=== PATIENT | female | born 1970 | race Caucasian/White ===

== ENCOUNTER 2016-09-20 15:13 | Emergency (ER) | payer OTHER ==
--- NOTE | 2016-09-20 17:23 | ED NURSING NOTES ---
Clinical Report - Nurses [facility] [address] [place] [address] 09/20/2016 15:17 Patient: IAM BOSE TRIAGE Triage time 15:47. Acuity: LEVEL 3. Chief Complaint: PAINFUL URINATION, URGENCY and FREQUENCY. Alert. No acute distress. CHON COMA SCORE: [place] Coma Scale: 15- eyes open spontaneously (4); best verbal response- oriented x 4 (5); best motor response- obeys commands (6). --15:57 Bev Singh R.N. 15:47 09/20/16. BP: 148/102. HR: 122. RR: 18. O2 saturation: 98% on room air. Temp: 98.4 F (oral). Pain level now: 10/12. --15:57 Bev Singh R.N. Weight: 86.1 kg stated. Height/Length: 71 inches Per Patient. BMI: 26.5. --15:54 Bev Singh R.N. Medications Albuterol Sulfate HFA Inhalation, as needed. --15:50 Bev Singh R.N. Medication/allergy information source: the patient. --15:57 Bev Singh R.N. Allergies Sulfa Antibiotics. --17:30 Johnson Gaitan R.N. The following entry was struck by Johnson Gaitan R.N., 17:29 (09/20/16) Reason - other. <<STRICKEN ENTRY-- No Known Drug Allergy. --15:50 Bev Singh R.N. --END STRIKE>>. History Arrived by private vehicle. Historian: patient. Unaccompanied. Primary physician (Teagan). Onset. (about 2 weeks). Describes the quality as "pain". Relates the location as in the left flank area. PAST MEDICAL HX: Last normal menstrual period- September 2016. SOCIAL HX: Heavy tobacco smoker- less than 1 pack per day. Regular alcohol use. No drug use. FALL RISK ASSESSMENT: Fall risk assessment completed. No fall risk identified. FUNCTIONAL ASSESSMENT: Functional assessment: no impairments noted. LEARNING NEEDS ASSESSMENT: The learning needs assessment revealed no barriers. --15:57 Bev Singh R.N. PROBLEMS: URI. Contusion. Head Injury. Concussion. Dental Abscess. Dental Caries. Hypertension. Dental Pain. Allergic Reaction. LNMP - Last Normal Menstrual Period. Immunizations. Asthma. --15:51 Bev Singh R.N. ADDITIONAL SURGERIES: Tubal Ligation. --15:51 Bev Singh R.N. Assessment GENERAL / NEURO / PSYCH: Alert. Oriented X 4. Appears in no acute distress. Patient appears calm and cooperative. RESPIRATORY: Respirations not labored. SKIN: Skin is warm and dry. --15:57 Bev Singh R.N. Interventions To treatment room. --15:57 Bev Singh R.N. PHYSICAL ASSESSMENT 15:59 09/20/16. Ambulatory to room. GENERAL / NEURO / PSYCH: Oriented X 4. Appears in pain. RESPIRATORY: Respirations not labored. CVS: Capillary refill less than 2 seconds. SKIN: Skin is warm and dry. --15:59 Johnson Gaitan R.N. NURSING PROGRESS NOTES 15:58 09/20/16. :patient confirmed. Clean catch urine collected; sample sent to lab. Specimen labeled in the presence of the patient. --15:58 Bev Singh R.N. 15:59 09/20/2016 Site #1 started via IV in the right antecubital space with an 20g angiocath, with aseptic technique and good blood return; one attempt. Blood drawn: rainbow set. Labeled in the presence of the patient and sent to the lab. Saline lock flushed with 10 mL saline. --16:09 Johnson Gaitan R.N. 16:09 09/20/2016 Started bag #1 1000 mL IV Fluids IV NS (Saline); at 1000 mL/hr over 1 hour(s) via site #1. Allergies verified and confirmed 5 rights. IV patency established. IV site checked: no pain, redness, or swelling. IV flushed thoroughly pre- and post-medication administration. Completed per protocol. --16:09 Johnson Gaitan R.N. 17:16 09/20/2016 IV Fluids IV NS Discontinued: bag #1 infused. Total amount infused: 1000 mL. IV patency established. IV site checked: no pain, redness, or swelling. IV flushed thoroughly. --17:26 Johnson Gaitan R.N. 17:26 09/20/2016 Toradol IVP 30 mg given over 2 minute(s) via site #1. Allergies verified and confirmed 5 rights. IV patency established. IV site checked: no pain, redness, or swelling. IV flushed thoroughly pre- and post-medication administration. IVP given by RN. --17:26 Johnson Gaitan R.N. 17:27 09/20/2016 Started 1 gm of Ceftriaxone IVPB in bag #1 50 mL; at 120 mL/hr over 20 minute(s) via site #1; Allergies verified and confirmed 5 rights. IV patency established. IV site checked: no pain, redness, or swelling. IV flushed thoroughly pre- and post-medication administration. Completed per protocol. --17:27 Johnson Gaitan R.N. 17:40 09/20/16. The patient is resting quietly. Overall patient status is improved- she states feels better. SKIN: Skin is warm and dry. --17:40 Bev Singh R.N. 17:38 09/20/16. BP: 138/80. HR: 87. RR: 18. O2 saturation: 97% on room air. --17:40 Bev Singh R.N. 17:50. Reassessment after fluids administered and medication administered. She is calm and resting quietly. Overall patient status is improved- she states feels better. SKIN: Skin is warm and dry. --18:17 Bev Singh R.N. DISPOSITION / DISCHARGE 17:50 09/20/2016 Site #1 removed upon discharge. Catheter intact. Bandaid applied. --18:16 Bev Singh R.N. 17:50 09/20/2016 Ceftriaxone IVPB Discontinued: bag #1 infused upon discharge. Total amount infused: 50 mL. --18:16 Bev Singh R.N. Departure time: 1750. Condition at departure: stable. No learning barriers present. Discharge instructions provided and reviewed with the patient. Reviewed medication(s). Prescription(s) given to the patient. Patient verbalized understanding. Written instructions provided in Filipino. The patient was discharged home and unaccompanied at time of discharge. She left the Emergency Department ambulatory and via private vehicle. FALL RISK ASSESSMENT: Fall risk assessment completed. No fall risk identified. --18:16 Bev Singh R.N. 18:14 09/20/16. BP: 139/82. HR: 87. RR: 18. O2 saturation: 98% on room air. Temp: 97.9 F (oral). --18:16 Bev Singh R.N. Locked/Released at 09/20/2016 18:18 by Bev Singh R.N.
--- NOTE | 2016-09-20 17:23 | ED CLINICAL REPORT ---
Clinical Report - Physicians/Mid Levels [facility] [address] [place] [address] 09/20/2016 15:17 Patient: IAM BOSE Time Seen: 17:05; initial patient contact, initial documentation, patient care assumed. Arrived- By private vehicle. Historian- patient. HISTORY OF PRESENT ILLNESS Chief Complaint: DYSURIA. This started about 2 weeks ago and still present. It was gradual in onset and has been constant. The symptoms are described as mild. Modifying factors- worsened by urination. Not relieved by anything. The patient has had abdominal pain. She has had moderate left-sided flank pain. No pelvic pain, vaginal pain, low back pain, abnormal bleeding or vaginal discharge. No hematuria. She has had pain with urination and urgency of urination. The patient has had urinary frequency. Denies current . Similar symptoms previously: None. Recent medical care: Not recently seen/assessed. REVIEW OF SYSTEMS No nausea, vomiting, diarrhea, fever or difficulty breathing. No chest pain. All systems otherwise negative, except as recorded above. PAST HISTORY See nurses notes. ( PROBLEMS: URI. Contusion. Head Injury. Concussion. Dental Abscess. Dental Caries. Hypertension. Dental Pain. Allergic Reaction. LNMP - Last Normal Menstrual Period. Immunizations. Asthma. --15:51 Bev Singh, R.N. ADDITIONAL SURGERIES: Tubal Ligation. --15:51 Bev Singh, R.N.). SOCIAL HISTORY Light tobacco smoker. Regular alcohol use. No drug use. No recent travel. Is a local resident. FAMILY HISTORY Negative. ADDITIONAL NOTES The nursing notes have been reviewed with agreement regarding the chief complaint, HPI, ROS, PMH and patient medications and allergies. PHYSICAL EXAM Vital Signs: 09/20/2016 15:47 BP: 148/102. HR: 122. RR: 18. O2 saturation: 98%. Temp: 98.4 F. Pain level now: 8/10. Have been reviewed as abnormal and appear to be correct. Hypertensive. Tachycardic. Respiratory rate normal. Temperature normal. Oxygen saturation normal. Appearance: Alert. Oriented X3. No acute distress. HEENT: Normal external inspection. ENT: Pharynx normal. Neck: Neck supple. CVS: Heart sounds normal. Respiratory: No respiratory distress. Breath sounds normal. Chest nontender. Abdomen: Soft and nontender. Bowel sounds normal. No organomegaly. No mass. Back: Abnormal external inspection. Mild CVA tenderness on the left. Skin: Skin warm and dry. Normal skin color. No rash. Normal skin turgor. Extremities: Extremities nontender. No lower extremity edema. Neuro: Oriented X 3. Mood/affect normal. No motor deficit. No sensory deficit. LABS, X-RAYS, AND EKG Laboratory Tests: UA-Culture if indicated: (BRIANNE: 09/20/2016 15:55) ( [facility] [place] 09/20/2016 16:32) Final results Test Result Flag Units (Reference) URINE COLOR YELLOW URINE APPEARANCE SL CLOUDY URINE GLUCOSE NEGATIVE (NEGATIVE) URINE BILIRUBIN NEGATIVE (NEGATIVE) URINE KETONE NEGATIVE (NEGATIVE) URINE SPECIFIC GRAVITY 1.010 (1.010-1.030) URINE PH 6.5 (5.0-8.0) URINE PROTEIN NEGATIVE (NEGATIVE) URINE UROBILINOGEN 0.2 EU/dL (0.2-1.0) URINE NITRITE NEGATIVE (NEGATIVE) URINE BLOOD 1+ (NEGATIVE) URINE LEUK ESTERASE POSITIVE (NEGATIVE) URINE RBC 5-10 rbc/hpf (0-1) URINE WBC 15-25 wbc/hpf (0-1) URINE EPITHELIAL CELLS 1-3 EPI/hpf (0-5) URINE BACTERIA FEW (1+) (NONE SEEN) URINE COMMENT CULTURE INDICATED URINE CULTURES ARE SET-UP BASED ON THE FOLLOWING CRITERIA:POSITIVE NITRITEPOSITIVE LEUKOCYTE ESTERASEGREATER THAN 10 WHITE BLOOD CELLSMODERATE (2+) OR GREATER BACTERIA Urine: (BRIANNE: 09/20/2016 15:55) ( [facility] [place] [place] 09/20/2016 16:23) Final results Test Result Flag Units (Reference) URINE NEGATIVE CBC w Diff: (BRIANNE: 09/20/2016 16:00) ( [facility] [place] [place] 09/20/2016 16:34) Final results Test Result Flag Units (Reference) WHITE BLOOD COUNT 16.0 H K/uL (4.5-11.5) RED BLOOD COUNT 4.66 M/uL (4.00-5.20) HEMOGLOBIN 14.5 gm/dL (12.0-16.0) HEMATOCRIT 44.1 % (36.0-46.0) MEAN CELL VOLUME 95 fL (80-100) MEAN CORPUSCULAR HGB 31 pg (26-34) MEAN CORPUSCULAR HGB CONC 33 g/dL (31-37) RED CELL DISTRIBUTION WIDTH 14.5 % (11.6-14.8) PLATELET COUNT 366 K/uL (150-400) NEUTROPHIL % 72.4 % (50-75) LYMPH % 19.7 L % (25-40) MONO % 5.4 % (3-14) EOSINOPHIL % 2.0 % (0-4) BASOPHIL % 0.5 % (0-2) CMP: (BRIANNE: 09/20/2016 16:00) ( MsgRcvd 09/20/2016 16:50) Final results Test Result Flag Units (Reference) GLUCOSE 110 mg/dL (70-110) BUN 10 mg/dL (7-18) CREATININE 0.9 mg/dL (0.6-1.3) Estimated GFR >60 mL/min Estimated GFR- >60 mL/min Note: Persistent reduction over 3 months in eGFR<60 mL/min/1.73 m2 defines CKD. Patients with eGFR values>=60 mL/min/1.73 m2 may also have CKD if evidence ofpersistent proteinuria. Additional information may be foundat www.kidney.org. SODIUM 140 mmol/L (136-145) POTASSIUM 4.1 mmol/L (3.5-5.1) CHLORIDE 103 mmol/L (98-107) CARBON DIOXIDE 28 mmol/L (21-32) CALCIUM 9.8 mg/dL (8.5-10.1) TOTAL PROTEIN 7.6 g/dL (6.4-8.2) ALBUMIN 3.9 g/dL (3.3-5.0) BILIRUBIN, TOTAL 0.4 mg/dL (0.0-1.0) ALKALINE PHOSPHATASE 92 U/L (46-116) AST (SGOT) 26 U/L (15-37) ALT (SGPT) 56 U/L (12-78) . PROGRESS AND PROCEDURES Patient counseled in person regarding the patient's stable condition, test results and diagnosis. Differential Diagnosis: Other possible considerations: uti, pyelo, kidney stone, failure, insufficiency, urosepsis. Above considerations are based on history, physical exam and laboratory data. Differential diagnosis was discussed with patient. Disposition: Discharged home in good and improved condition (17:23). Condition: good and stable. CLINICAL IMPRESSION Acute pyelonephritis INSTRUCTIONS Alternate Tylenol (Acetaminophen) and Motrin (Ibuprofen) for fever, temperature greater than 101 degrees. Take according to label instructions. Drink plenty of fluids for the next 24 hours until better. Warnings: GENERAL WARNINGS: Return or contact your physician immediately if your condition worsens or changes unexpectedly, if not improving as expected, or if other problems arise. Specifically return if problem worsens. Prescription Medications: Zofran 4 mg: Take 1 orally every six hours as needed for nausea/vomiting. Dispense ten (10). No refills. Substitution is permissible. Ultram 50 mg tablets: take 1-2 orally every 6 hours as needed for pain. Dispense twenty (20). No refills. Substitution is permissible. Levaquin 500 mg: take 1 tablet orally every 24 hours for 10 days. No refills. Substitution is permissible. Follow-up: Follow up with your doctor in about two days even if well. Summary of care provided to patient. Screening today revealed the patient's blood pressure to be in the hypertensive range. The patient should follow up with a primary care provider for blood pressure management. Understanding of the discharge instructions verbalized by patient. (Electronically signed by Rupali Pastrana A.R.N.P. 09/20/2016 21:14)
--- NOTE | 2016-09-20 17:23 | ED ORDER SUMMARY ---
..... Patient: IAM BOSE OrderSheet [facility] VisitID: [id number] [place] [address] 46y, F Registration Date/Time: 09/20/2016 ORDER SHEET Weight: 86.1 kg (stated) Allergies: Sulfa Antibiotics GENERAL ORDERS: UA-Culture if indicated Urgent (15:58 09/20/2016 JBoardley R.N. per protocol) (Ack 16:00 AMcQuoid ER Tech1) (16:09 JBoardley R.N.) Urine Urgent (15:58 09/20/2016 JBoardley R.N. per protocol) (Ack 16:00 AMcQuoid ER Tech1) (16:09 JBoardley R.N.) CBC w Diff Urgent (16:08 09/20/2016 JBoardley R.N. per protocol) (Ack 16:10 AMcQuoid ER Tech1) (16:14 JBoardley R.N.) CMP Urgent (16:08 09/20/2016 JBoardley R.N. per protocol) (Ack 16:10 AMcQuoid ER Tech1) (16:14 JBoardley R.N.) MEDICATION ORDERS: IV FLUIDS: IV NS : initial bolus none -, then 1000 mL/hr for X1 (NOW) (16:08 09/20/2016 JBoardley R.N. per protocol) (16:09 JBoardley R.N.) Toradol IV 30 mg (NOW) (17:21 09/20/2016 HBivens A.R.N.P.) (Ack 17:22 JBoardley R.N.) (17:26 JBoardley R.N.) Ceftriaxone IV 1 gm/50mL (NOW) (17:21 09/20/2016 HBivens A.R.N.P.) (Ack 17:22 JBoardley R.N.) (17:27 JBoardley R.N.) ORDER SHEET NOTES: [Electronically signed by Bev Singh R.N. (18:18 09/20/2016)] [Electronically signed by Rupali Pastrana A.R.N.P. (21:14 09/20/2016)] [Electronically locked/signed by Bev Singh R.N. (18:18 09/20/2016)]
--- NOTE | 2016-09-20 17:23 | ED ORDER SUMMARY ---
..... Patient: IAM BOSE OrderSheet [facility] VisitID: [id number] [place] [address] 46y, F Registration Date/Time: 09/20/2016 ORDER SHEET Weight: 86.1 kg (stated) Allergies: Sulfa Antibiotics GENERAL ORDERS: UA-Culture if indicated Urgent (15:58 09/20/2016 JBoardley R.N. per protocol) (Ack 16:00 AMcQuoid ER Tech1) (16:09 JBoardley R.N.) Urine Urgent (15:58 09/20/2016 JBoardley R.N. per protocol) (Ack 16:00 AMcQuoid ER Tech1) (16:09 JBoardley R.N.) CBC w Diff Urgent (16:08 09/20/2016 JBoardley R.N. per protocol) (Ack 16:10 AMcQuoid ER Tech1) (16:14 JBoardley R.N.) CMP Urgent (16:08 09/20/2016 JBoardley R.N. per protocol) (Ack 16:10 AMcQuoid ER Tech1) (16:14 JBoardley R.N.) MEDICATION ORDERS: IV FLUIDS: IV NS : initial bolus none -, then 1000 mL/hr for X1 (NOW) (16:08 09/20/2016 JBoardley R.N. per protocol) (16:09 JBoardley R.N.) Toradol IV 30 mg (NOW) (17:21 09/20/2016 HBivens A.R.N.P.) (Ack 17:22 JBoardley R.N.) (17:26 JBoardley R.N.) Ceftriaxone IV 1 gm/50mL (NOW) (17:21 09/20/2016 HBivens A.R.N.P.) (Ack 17:22 JBoardley R.N.) (17:27 JBoardley R.N.) ORDER SHEET NOTES: [Electronically signed by Bev Singh R.N. (18:18 09/20/2016)] [Electronically signed by Rupali Pastrana A.R.N.P. (21:14 09/20/2016)] [Electronically locked/signed by Bev Singh R.N. (18:18 09/20/2016)]
--- NOTE | 2016-09-20 21:14 | ED MED RECONCILIATION SUMMARY ---
Patient: IAM BOSE Medication Reconciliation Report [facility] VisitID: [id number] [address] [place] [address] 46y, F Registration Date/Time: 09/20/2016 Weight: 86.1 kg Height/Length: 71 in. BMI: 26.5 ALLERGIES: Sulfa Antibiotics The patient's Home Medications are listed below: THE FOLLOWING MEDICATIONS NEED TO BE RECONCILED: Albuterol Sulfate HFA Inhalation The source(s) of the original Home Medication information: patient The following Medications were given to the patient in the Emergency Department: IV NS IV Fluids bolus 0, then 1000 mL/hr, administered: 09/20/2016 4:09:00 PM Toradol [IVP] IVP 30 mg, administered: 09/20/2016 5:26:00 PM Ceftriaxone [IVPB] IVPB bolus 0, then 1 gm 120 mL/hr, administered: 09/20/2016 5:27:00 PM The following Medications were prescribed to the patient: Zofran 4 mg: Take 1 orally every six hours as needed for nausea/vomiting. Dispense ten (10). No refills. Substitution is permissible. -- Rupali Pastrana, A.R.N.P. Ultram 50 mg tablets: take 1-2 orally every 6 hours as needed for pain. Dispense twenty (20). No refills. Substitution is permissible. -- Rupali Pastrana, A.R.N.P. Levaquin 500 mg: take 1 tablet orally every 24 hours for 10 days. No refills. Substitution is permissible. -- Rupali Pastrana A.R.N.P.
--- NOTE | 2016-09-20 21:14 | ED MAR SUMMARY ---
..... Medication Administration Record [facility] [address] [place] [address] Patient: IAM BOSE Visit ID: [id number] 46y, F Weight: 86.1 kg Height/Length: 71 in BMI: 26.5 ALLERGIES: Sulfa Antibiotics Start 16:09 09/20/2016 Johnson Gaitan R.N., Stop 17:16 09/20/2016 Johnson Gaitan R.N. Medication Administered: IV NS (SALINE), Dose: IV Fluids over 1 hour(s), Rate: 1000 mL/hr, Dispensed: 1000 mL bag, Site: #1 right AC. Medication Ordered: IV NS : initial bolus none -, then 1000 mL/hr for X1 (NOW). Given 17:26 09/20/2016 Johnson Gaitan R.N. Medication Administered: TORADOL [IVP], Dose: 30 mg IVP over 2 minute(s), Site: #1 right AC. Medication Ordered: Toradol IV 30 mg (NOW). Start 17:27 09/20/2016 Johnson Gaitan R.N., Stop 17:50 09/20/2016 Bev Singh R.N. Medication Administered: CEFTRIAXONE [IVPB], Dose: 1 gm IVPB over 20 minute(s), Rate: 120 mL/hr, Dispensed: 50 mL bag, Site: #1 right AC. Medication Ordered: Ceftriaxone IV 1 gm/50mL (NOW).
--- NOTE | 2016-09-20 21:14 | ED MED RECONCILIATION SUMMARY ---
Patient: IAM BOSE Medication Reconciliation Report [facility] VisitID: [id number] [address] [place] [address] 46y, F Registration Date/Time: 09/20/2016 Weight: 86.1 kg Height/Length: 71 in. BMI: 26.5 ALLERGIES: Sulfa Antibiotics The patient's Home Medications are listed below: THE FOLLOWING MEDICATIONS NEED TO BE RECONCILED: Albuterol Sulfate HFA Inhalation The source(s) of the original Home Medication information: patient The following Medications were given to the patient in the Emergency Department: IV NS IV Fluids bolus 0, then 1000 mL/hr, administered: 09/20/2016 4:09:00 PM Toradol [IVP] IVP 30 mg, administered: 09/20/2016 5:26:00 PM Ceftriaxone [IVPB] IVPB bolus 0, then 1 gm 120 mL/hr, administered: 09/20/2016 5:27:00 PM The following Medications were prescribed to the patient: Zofran 4 mg: Take 1 orally every six hours as needed for nausea/vomiting. Dispense ten (10). No refills. Substitution is permissible. -- Rupali Pastrana, A.R.N.P. Ultram 50 mg tablets: take 1-2 orally every 6 hours as needed for pain. Dispense twenty (20). No refills. Substitution is permissible. -- Rupali Pastrana, A.R.N.P. Levaquin 500 mg: take 1 tablet orally every 24 hours for 10 days. No refills. Substitution is permissible. -- Rupali Pastrana A.R.N.P.
--- NOTE | 2016-09-20 21:14 | ED MAR SUMMARY ---
..... Medication Administration Record [facility] [address] [place] [address] Patient: IAM BOSE Visit ID: [id number] 46y, F Weight: 86.1 kg Height/Length: 71 in BMI: 26.5 ALLERGIES: Sulfa Antibiotics Start 16:09 09/20/2016 Johnson Gaitan R.N., Stop 17:16 09/20/2016 Johnson Gaitan R.N. Medication Administered: IV NS (SALINE), Dose: IV Fluids over 1 hour(s), Rate: 1000 mL/hr, Dispensed: 1000 mL bag, Site: #1 right AC. Medication Ordered: IV NS : initial bolus none -, then 1000 mL/hr for X1 (NOW). Given 17:26 09/20/2016 Johnson Gaitan R.N. Medication Administered: TORADOL [IVP], Dose: 30 mg IVP over 2 minute(s), Site: #1 right AC. Medication Ordered: Toradol IV 30 mg (NOW). Start 17:27 09/20/2016 Johnson Gaitan R.N., Stop 17:50 09/20/2016 Bev Singh R.N. Medication Administered: CEFTRIAXONE [IVPB], Dose: 1 gm IVPB over 20 minute(s), Rate: 120 mL/hr, Dispensed: 50 mL bag, Site: #1 right AC. Medication Ordered: Ceftriaxone IV 1 gm/50mL (NOW).
--- NOTE | 2016-09-20 21:14 | ED DISCHARGE INSTRUCTIONS ---
Patient: IAM BOSE General Instructions [facility] VisitID: [id number] [place] [address] 46y, F Registration Date/Time: 09/20/2016 Acute pyelonephritis INSTRUCTIONS Alternate Tylenol (Acetaminophen) and Motrin (Ibuprofen) for fever, temperature greater than 101 degrees. Take according to label instructions. Drink plenty of fluids for the next 24 hours until better. Warnings: GENERAL WARNINGS: Return or contact your physician immediately if your condition worsens or changes unexpectedly, if not improving as expected, or if other problems arise. Specifically return if problem worsens. Prescription Medications: Zofran 4 mg: Take 1 orally every six hours as needed for nausea/vomiting. Dispense ten (10). No refills. Substitution is permissible. Ultram 50 mg tablets: take 1-2 orally every 6 hours as needed for pain. Dispense twenty (20). No refills. Substitution is permissible. Levaquin 500 mg: take 1 tablet orally every 24 hours for 10 days. No refills. Substitution is permissible. Follow-up: Follow up with your doctor in about two days even if well. Summary of care provided to patient. Screening today revealed the patient's blood pressure to be in the hypertensive range. The patient should follow up with a primary care provider for blood pressure management. Understanding of the discharge instructions verbalized by patient. ADDITIONAL INFORMATION Kidney Infection [Adult, Female] An infection of the kidney is also called "pyelonephritis". It usually starts as a bladder infection ("cystitis") which spreads to the kidneys. Pyelonephritis is more serious than a bladder infection. It can cause severe illness if not treated properly. The usual symptoms include an aching pain in the back, side or lower abdomen. Other symptoms may include fever, chills, nausea, vomiting, an urge to urinate and a burning sensation when passing urine. Home Care: Stay home from work or school. Rest in bed until your fever breaks and you are feeling better. Drink lots of fluid (at least 6-8 glasses a day, unless you must restrict fluids for other medical reasons). This will force the medicine into your urinary system and flush the bacteria out of your body. Avoid sexual intercourse until you have finished all of your medicine and your symptoms have gone away. Avoid caffeine, alcohol and spicy foods which may irritate the kidney and bladder. You may use acetaminophen (Tylenol) or ibuprofen (Motrin, Advil) to control pain, unless another pain medicine was prescribed. [NOTE: If you have chronic liver or kidney disease or ever had a stomach ulcer or GI bleeding, talk with your doctor before using these medicines.] Follow Up with your doctor or as advised by our staff for a repeat urine test in 10 days. This will ensure that your infection is fully cleared. [NOTE: If you had an X-ray or CT scan, it will be reviewed by a specialist. You will be notified of any new findings that may affect your care.] Get Prompt Medical Attention if any of the following occur: Fever over 100.4F (38.0C) after 48 hours of treatment No improvement by the third day of treatment Increasing back or abdominal pain Repeated vomiting or inability to take oral medicine Weakness, dizziness or fainting Fever Control (Adult) A fever is a natural reaction of the body to an illness. In most cases, the temperature itself is not harmful. It actually helps the body fight infections. A fever does not need to be treated unless you feel very uncomfortable. Home Care If you feel warm, check your temperature. If you feel very uncomfortable and your temperature is at or higher than 100.4F (38C) oral, you may take acetaminophen (Tylenol) every 4 to 6 hours. If you cant take or keep down oral medicine, ask your pharmacist for Tylenol suppositories, which you can get without a prescription. If the fever does not respond to acetaminophen within 1 hour, take ibuprofen (Advil or Motrin). If this works, keep taking the ibuprofen every 6 to 8 hours. Note: If you have chronic liver or kidney disease or ever had a stomach ulcer or GI bleeding, talk with your doctor before using these medications. If either medication alone does not keep the fever down, you may alternate the two medicines every 3 to 4 hours, only if your healthcare provider has instructed you to do so. For example, take Motrin then wait 3 hours, take Tylenol then wait 3 hours, take Motrin, and so on. Follow your healthcare providers instructions exactly. Clothing: Keep clothing light because excess body heat is lost through the skin. The fever will go up if you wear extra layers or wrap in blankets. Fluids: Fever causes the body to lose water through evaporation. Drink plenty of fluids such as water, juice, clear sodas, ryder lin, or lemonade. Do not use aspirin in anyone under 18 years of age who is ill with a fever. It can cause severe liver damage. Follow Up with your doctor or as advised by our staff if you do not get better after 48 hours. Get Prompt Medical Attention if any of the following occur: Fever does not get better after taking fever medication Fast or difficult breathing Earache, sinus pain, stiff or painful neck, headache, repeated diarrhea or vomiting You feel unusually irritable, drowsy, or confused A rash appears You feel weak or dizzy, or that you might faint Ondansetron Oral disintegrating tablet What is this medicine? ONDANSETRON (on KEAGAN se mj) is used to treat nausea and vomiting caused by chemotherapy. It is also used to prevent or treat nausea and vomiting after surgery. How should I use this medicine? These tablets are made to dissolve in the mouth. Do not try to push the tablet through the foil backing. With dry hands, peel away the foil backing and gently remove the tablet. Place the tablet in the mouth and allow it to dissolve, then swallow. While you may take these tablets with water, it is not necessary to do so. Talk to your needle valve operator regarding the use of this medicine in children. Special care may be needed. What side effects may I notice from receiving this medicine? Side effects that you should report to your doctor or health chronic care nurse as soon as possible: allergic reactions like skin rash, itching or hives, swelling of the face, lips, or tongue breathing problems dizziness fast or irregular heartbeat feeling faint or lightheaded, falls fever and chills swelling of the hands and feet tightness in the chest Side effects that usually do not require medical attention (report to your doctor or health chronic care nurse if they continue or are bothersome): constipation or diarrhea headache What may interact with this medicine? Do not take this medicine with any of the following medications: -apomorphine -cisapride -dofetilide -dronedarone -pimozide -thioridazine -ziprasidone This medicine may also interact with the following medications: -carbamazepine -phenytoin -rifampicin -tramadol -other medicines that prolong the QT interval (cause an abnormal heart rhythm) What if I miss a dose? If you miss a dose, take it as soon as you can. If it is almost time for your next dose, take only that dose. Do not take double or extra doses. Where should I keep my medicine? Keep out of the reach of children. Store between 2 and 30 degrees C (36 and 86 degrees F). Throw away any unused medicine after the expiration date. What should I tell my health care provider before I take this medicine? They need to know if you have any of these conditions: heart disease history of irregular heartbeat liver disease low levels of magnesium or potassium in the blood an unusual or allergic reaction to ondansetron, granisetron, other medicines, foods, dyes, or preservatives or trying to get breast-feeding What should I watch for while using this medicine? Check with your doctor or health chronic care nurse as soon as you can if you have any sign of an allergic reaction. Tramadol Hydrochloride Oral tablet What is this medicine? TRAMADOL (TRA ma dole) is a pain reliever. It is used to treat moderate to severe pain in adults. How should I use this medicine? Take this medicine by mouth with a full glass of water. Follow the directions on the prescription label. If the medicine upsets your stomach, take it with food or milk. Do not take more medicine than you are told to take. Talk to your needle valve operator regarding the use of this medicine in children. Special care may be needed. What side effects may I notice from receiving this medicine? Side effects that you should report to your doctor or health chronic care nurse as soon as possible: allergic reactions like skin rash, itching or hives, swelling of the face, lips, or tongue breathing difficulties, wheezing confusion itching light headedness or fainting spells redness, blistering, peeling or loosening of the skin, including inside the mouth seizures Side effects that usually do not require medical attention (report to your doctor or health chronic care nurse if they continue or are bothersome): constipation dizziness drowsiness headache nausea, vomiting What may interact with this medicine? Do not take this medicine with any of the following medications: MAOIs like Carbex, Eldepryl, Marplan, Nardil, and Parnate This medicine may also interact with the following medications: alcohol or medicines that contain alcohol antihistamines benzodiazepines bupropion carbamazepine or oxcarbazepine clozapine cyclobenzaprine digoxin furazolidone linezolid medicines for depression, anxiety, or psychotic disturbances medicines for migraine headache like almotriptan, eletriptan, frovatriptan, naratriptan, rizatriptan, sumatriptan, zolmitriptan medicines for pain like pentazocine, buprenorphine, butorphanol, meperidine, nalbuphine, and propoxyphene medicines for sleep muscle relaxants naltrexone phenobarbital phenothiazines like perphenazine, thioridazine, chlorpromazine, mesoridazine, fluphenazine, prochlorperazine, promazine, and trifluoperazine procarbazine warfarin What if I miss a dose? If you miss a dose, take it as soon as you can. If it is almost time for your next dose, take only that dose. Do not take double or extra doses. Where should I keep my medicine? Keep out of the reach of children. Store at room temperature between 15 and 30 degrees C (59 and 86 degrees F). Keep container tightly closed. Throw away any unused medicine after the expiration date. What should I tell my health care provider before I take this medicine? They need to know if you have any of these conditions: brain tumor depression drug abuse or addiction head injury if you frequently drink alcohol containing drinks kidney disease or trouble passing urine liver disease lung disease, asthma, or breathing problems seizures or epilepsy suicidal thoughts, plans, or attempt; a previous suicide attempt by you or a family member an unusual or allergic reaction to tramadol, codeine, other medicines, foods, dyes, or preservatives or trying to get breast-feeding What should I watch for while using this medicine? Tell your doctor or health chronic care nurse if your pain does not go away, if it gets worse, or if you have new or a different type of pain. You may develop tolerance to the medicine. Tolerance means that you will need a higher dose of the medicine for pain relief. Tolerance is normal and is expected if you take this medicine for a long time. Do not suddenly stop taking your medicine because you may develop a severe reaction. Your body becomes used to the medicine. This does NOT mean you are addicted. Addiction is a behavior related to getting and using a drug for a non-medical reason. If you have pain, you have a medical reason to take pain medicine. Your doctor will tell you how much medicine to take. If your doctor wants you to stop the medicine, the dose will be slowly lowered over time to avoid any side effects. You may get drowsy or dizzy. Do not drive, use machinery, or do anything that needs mental alertness until you know how this medicine affects you. Do not stand or sit up quickly, especially if you are an older patient. This reduces the risk of dizzy or fainting spells. Alcohol can increase or decrease the effects of this medicine. Avoid alcoholic drinks. You may have constipation. Try to have a bowel movement at least every 2 to 3 days. If you do not have a bowel movement for 3 days, call your doctor or health chronic care nurse. Your mouth may get dry. Chewing sugarless gum or sucking hard candy, and drinking plenty of water may help. Contact your doctor if the problem does not go away or is severe. Levofloxacin Oral tablet What is this medicine? LEVOFLOXACIN (bambi puente) is a quinolone antibiotic. It is used to treat certain kinds of bacterial infections. It will not work for colds, flu, or other viral infections. How should I use this medicine? Take this medicine by mouth with a full glass of water. Follow the directions on the prescription label. This medicine can be taken with or without food. Take your medicine at regular intervals. Do not take your medicine more often than directed. Do not skip doses or stop your medicine early even if you feel better. Do not stop taking except on your doctor's advice. A special MedGuide will be given to you by the pharmacist with each prescription and refill. Be sure to read this information carefully each time. Talk to your needle valve operator regarding the use of this medicine in children. While this drug may be prescribed for children as young as 6 months for selected conditions, precautions do apply. What side effects may I notice from receiving this medicine? Side effects that you should report to your doctor or health chronic care nurse as soon as possible: -allergic reactions like skin rash or hives, swelling of the face, lips, or tongue -changes in vision -confusion, nightmares or hallucinations -difficulty breathing -irregular heartbeat, chest pain -joint, muscle or tendon pain -pain or difficulty passing urine -persistent headache with or without blurred vision -redness, blistering, peeling or loosening of the skin, including inside the mouth -seizures -unusual pain, numbness, tingling, or weakness -vaginal irritation, discharge Side effects that usually do not require medical attention (report to your doctor or health chronic care nurse if they continue or are bothersome): -diarrhea -dry mouth -headache -stomach upset, nausea -trouble sleeping What may interact with this medicine? Do not take this medicine with any of the following medications: - arsenic trioxide - chloroquine - droperidol - medicines for irregular heart rhythm like amiodarone, disopyramide, dofetilide, flecainide, quinidine, procainamide, sotalol - some medicines for depression or mental problems like phenothiazines, pimozide, and ziprasidone This medicine may also interact with the following medications: - amoxapine -antacids - cisapride - dairy products - didanosine (ddI) buffered tablets or powder - haloperidol - multivitamins -NSAIDS, medicines for pain and inflammation, like ibuprofen or naproxen - retinoid products like tretinoin or isotretinoin - risperidone - some other antibiotics like clarithromycin or erythromycin - sucralfate - theophylline - warfarin What if I miss a dose? If you miss a dose, take it as soon as you remember. If it is almost time for your next dose, take only that dose. Do not take double or extra doses. Where should I keep my medicine? Keep out of the reach of children. Store at room temperature between 15 and 30 degrees C (59 and 86 degrees F). Keep in a tightly closed container. Throw away any unused medicine after the expiration date. What should I tell my health care provider before I take this medicine? They need to know if you have any of these conditions: cerebral disease irregular heartbeat kidney disease seizure disorder an unusual or allergic reaction to levofloxacin, other antibiotics or medicines, foods, dyes, or preservatives or trying to get breast-feeding What should I watch for while using this medicine? Tell your doctor or health chronic care nurse if your symptoms do not improve or if they get worse. Drink several glasses of water a day and cut down on drinks that contain caffeine. You must not get dehydrated while taking this medicine. You may get drowsy or dizzy. Do not drive, use machinery, or do anything that needs mental alertness until you know how this medicine affects you. Do not sit or stand up quickly, especially if you are an older patient. This reduces the risk of dizzy or fainting spells. This medicine can make you more sensitive to the sun. Keep out of the sun. If you cannot avoid being in the sun, wear protective clothing and use a sunscreen. Do not use sun lamps or tanning beds/booths. Contact your doctor if you get a sunburn. If you are a diabetic monitor your blood glucose carefully. If you get an unusual reading stop taking this medicine and call your doctor right away. Do not treat diarrhea with [id number] products. Contact your doctor if you have diarrhea that lasts more than 2 days or if the diarrhea is severe and watery. Avoid antacids, calcium, iron, and zinc products for 2 hours before and 2 hours after taking a dose of this medicine. You have been given the following additional information: Pyelonephritis, Female (Adult) Fever Control (Adult) Ondansetron Oral disintegrating tablet Tramadol Hydrochloride Oral tablet Levofloxacin Oral tablet (Electronically signed by Rupali Pastrana A.R.N.P. 09/20/2016 21:14)
== END 2016-09-20 17:15 | disposition home or self-care (01) ==
LOC: ED SRH 15:13
DX: N10 Acute pyelonephritis (principal); I10 Essential (primary) hypertension; J45.909 Unspecified asthma, uncomplicated; F17.210 Nicotine dependence, cigarettes, uncomplicated; Z88.2 Allergy status to sulfonamides
CPT/HCPCS: 90004; 90025; 90100; 90148; 90469; 93070; 95059